=== PATIENT | female | born 1970 | race African-American/Black ===

== ENCOUNTER 2023-09-13 05:40 | Day surgery (SDC) | payer OTHER ==
[~2023-09-13 05:40] MED LIST: NASAL MIST126 ML; VITAMIN D PO
[2023-09-13] MEDS ORDERED: DICLOFENAC POTA50 MG PO (12:04)
== END 2023-09-13 16:30 | disposition home or self-care (01) ==
LOC: CIR.AMB 05:40
PROVIDERS: ATTEND Obstetrics & Gynecology
DX: D25.0 Submucous leiomyoma of uterus (principal); N92.4 Excessive bleeding in the premenopausal period; Z20.822 Contact with and (suspected) exposure to COVID-19; Z88.0 Allergy status to penicillin

== ENCOUNTER 2024-10-30 11:30 | Inpatient (IN) | payer OTHER ==
[~2024-10-30] VITALS: Ht 160 cm; Wt 70.8 kg
[~2024-10-30 11:30] MED LIST changes: +DICLOFENAC POTA50 MG PO
[2024-11-06] MEDS ORDERED: CYMBALTA30 MG PO (13:59)
[2024-11-06 14:03] VITALS: BP 116/69
[2024-11-06 15:44] LABS: RH NEGATIVE
[2024-11-13] MEDS ORDERED: CLINDAMYCIN PHOSPHATE 150 MG/ML (600mg) ONE (15:04)
[2024-11-13] MEDS ORDERED: POVIDONE-IODINE 118 ML BOTT TOP ONE (16:00)
[2024-11-13] MEDS ORDERED: THROMBIN,HU/FIBRINOGEN/CALCIUM 10 ML SYRINGE TOP ONE (16:00)
[2024-11-13] MEDS ORDERED: MORPHINE SULFATE 4 MG/ML CARTRIDGE IV PRN (17:45)
[2024-11-13] MEDS ORDERED: RINGERS SOLUTION,LACTATED 1,000 ML IV SCH (17:45)
[2024-11-13] MEDS ORDERED: KETOROLAC TROMETHAMINE 30 MG VIAL IV NR (17:45)
[2024-11-13] MEDS ORDERED: ACETAMINOPHEN 500 MG GEL..CAP PO SCH (18:00)
[2024-11-13] MEDS ORDERED: KETOROLAC TROMETHAMINE 30 MG VIAL IM SCH (18:00)
[2024-11-13] MEDS ORDERED: ONDANSETRON HCL 2 MG/ML VIAL ONE (18:57)
[2024-11-13] MEDS ORDERED: GABAPENTIN 300 MG CAPSULE PO SCH (21:00)
[2024-11-13] MEDS ORDERED: FAMOTIDINE/PF 20 MG/2 ML VIAL IV PUSH SCH (21:00)
[2024-11-13] MEDS ORDERED: SIMETHICONE 125 MG CAPSULE PO SCH (21:00)
[2024-11-13] MEDS ORDERED: DOCUSATE SODIUM 100MG CAP PO SCH (21:00)
[2024-11-13 21:35] LABS: HEMATOCRIT 39.4 % (36.0-45.00); HEMOGLOBIN 13.1 g/dL (12.0-15.00); MEAN CELL VOLUME 88.5 fL (80.00-100.00); MEAN CORPUSCULAR HEMOGLOBIN 29.5 pg (27.00-32.0); MEAN CORPUSCULAR HGB CONC 33.3 g/dl (32.0-36.0); PLATELET COUNT 237 K/uL (150-450); RED BLOOD COUNT 4.45 M/uL (4.00-6.00); RED CELL DISTRIBUTION WIDTH 15.4 % (11.5-14.5)
[2024-11-13 22:11] LABS: ALBUMIN 3.1 gm/dL (3.4-5.0); CREATININE SERUM 0.73 mg/dL (0.55-1.02); GFR 82.47; PHOSPHOROUS 3.9 mg/dL (2.5-4.9); POTASSIUM 3.91 mEq/L (3.5-5.1)
[2024-11-14 00:36] VITALS: BP 105/62; O2SAT 95
[2024-11-14] MEDS ORDERED: METOCLOPRAMIDE HCL 5 MG/ML VIAL IV SCH (01:00)
[2024-11-14] MEDS ORDERED: CLINDAMYCIN PHOSPHATE 150 MG/ML (600mg) IV SCH (01:00)
[2024-11-14 07:01] LABS: HEMATOCRIT 39.6 % (36.0-45.00); HEMOGLOBIN 13.2 g/dL (12.0-15.00); MEAN CELL VOLUME 88.9 fL (80.00-100.00); MEAN CORPUSCULAR HEMOGLOBIN 29.6 pg (27.00-32.0); MEAN CORPUSCULAR HGB CONC 33.3 g/dl (32.0-36.0); PLATELET COUNT 266 K/uL (150-450); RED BLOOD COUNT 4.46 M/uL (4.00-6.00); RED CELL DISTRIBUTION WIDTH 14.7 % (11.5-14.5)
[2024-11-14 07:30] VITALS: BP 111/61; O2SAT 91
[2024-11-14 07:37] LABS: ALBUMIN 3.2 gm/dL (3.4-5.0); CALCIUM 8.9 mg/dL (8.5-10.1); CREATININE SERUM 0.58 mg/dL (0.55-1.02); GFR 107.54; PHOSPHOROUS 3.3 mg/dL (2.5-4.9); POTASSIUM 4.12 mEq/L (3.5-5.1)
[2024-11-14] MEDS ORDERED: OxyCODONE HCL/APAP UD (PERCOCET) PO PRN (08:30)
[2024-11-14] MEDS ORDERED: ENOXAPARIN SODIUM 40 MG/0.4 ML SYRINGE SUBCUTANEO SCH (09:00)
[2024-11-14] MEDS ORDERED: DOCUSATE SODIUM 100MG CAP PO ONE (21:38)
[2024-11-15] VITALS: BP 116/70; O2SAT 95
[2024-11-15 08:00] VITALS: BP 97/63; O2SAT 95
== END 2024-11-15 13:09 | disposition home or self-care (01) | DRG 743 ==
LOC: O/R 11-13 07:36 → SURG 11-13 12:15 → SURH 11-13 19:03 → SURG 11-13 20:15 → SURH 11-15 13:09
PROVIDERS: Obstetrics & Gynecology; ADMIT Obstetrics & Gynecology Gynecologic Oncology; ATTEND Obstetrics & Gynecology Gynecologic Oncology
PROC: 07BC0ZZ Excision of Pelvis Lymphatic, Open Approach (ICD-10-PCS; 2024-11-13)
PROC: 0UT70ZZ Resection of Bilateral Fallopian Tubes, Open Approach (ICD-10-PCS; 2024-11-13)
PROC: 0UT20ZZ Resection of Bilateral Ovaries, Open Approach (ICD-10-PCS; 2024-11-13)
PROC: 0WBH0ZZ Excision of Retroperitoneum, Open Approach (ICD-10-PCS; 2024-11-13)
PROC: 3E1M38Z Irrigation of Peritoneal Cavity using Irrigating Substance, Percutaneous Approach (ICD-10-PCS; 2024-11-13)
PROC: 0UT90ZZ Resection of Uterus, Open Approach (ICD-10-PCS; principal; 2024-11-13 20:15)
DX: D25.1 Intramural leiomyoma of uterus (principal); D25.0 Submucous leiomyoma of uterus; D25.2 Subserosal leiomyoma of uterus; N92.4 Excessive bleeding in the premenopausal period; N80.03 Adenomyosis of the uterus; Z20.822 Contact with and (suspected) exposure to COVID-19